=== PATIENT | female | born 2000 | race Caucasian/White ===

== ENCOUNTER 2019-03-01 02:48 | Emergency (ER) | payer BC ==
[~2019-03-01] VITALS: Ht 165.1 cm; Wt 134.7 kg
[2019-03-01 03:02] VITALS: Ht 165.1 cm; Wt 134.7 kg
[2019-03-01 03:51] VITALS: BP 112/54
== END 2019-03-01 03:51 | disposition home or self-care (01) ==
LOC: ED 02:48
DX: N75.1 Abscess of Bartholin's gland (principal)
CPT/HCPCS: J1885

== ENCOUNTER 2020-05-10 01:27 | Emergency (ER) | payer BC ==
[~2020-05-10] VITALS: Ht 165.1 cm; Wt 130.2 kg
[2020-05-10 01:38] VITALS: Ht 165.1 cm; Wt 130.2 kg
[2020-05-10 03:11] VITALS: BP 110/68
[2020-05-12 05:08] LABS: RAPID PLASMA REAGIN Non Reactive (Non Reactive)
== END 2020-05-10 02:50 | disposition home or self-care (01) ==
LOC: ED 01:27
PROVIDERS: Emergency Medicine
DX: A60.00 Herpesviral infection of urogenital system, unspecified (principal)
CPT/HCPCS: 87491; 87591; J0696